=== PATIENT | male | born 1960 | race Caucasian/White ===

== ENCOUNTER 2018-04-07 14:22 | Emergency (ER) | payer MEDICAID, MEDICARE, OTHER ==
[2018-04-07 14:47] VITALS: RESP 18
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
[2018-04-07 17:43] VITALS: BP 128/85; PULSE 76; TEMP 98
--- NOTE | 2018-04-07 17:51 | RAD ---
Date of service: 04/07/2018 PROCEDURE: Radiographs of the Chest and Right Ribs. HISTORY: pain COMPARISON: Chest x-ray performed 01/29/16 TECHNIQUE: Frontal radiograph of the chest and multiple oblique radiographs of the right ribs were obtained. FINDINGS: RIGHT RIBS: No appreciable displaced right rib fracture. LUNGS: Left lower lobe infiltrate. Biapical pleural thickening. PLEURA: No significant pleural effusion. No definite pneumothorax. CARDIOVASCULAR: Cardiomegaly. OTHER FINDINGS: None. IMPRESSION: Cardiomegaly. Left lower lobe infiltrate. Biapical pleural thickening. No appreciable displaced right rib fracture.
[2018-04-07 21:19] VITALS: O2SAT 96
== END 2018-04-07 17:43 | disposition home or self-care (01) ==
LOC: C.ER 14:22
DX: J18.9 Pneumonia, unspecified organism (principal); S20.211A Contusion of right front wall of thorax, initial encounter; Y08.89XA Assault by other specified means, initial encounter; Y92.9 Unspecified place or not applicable; Z87.891 Personal history of nicotine dependence